=== PATIENT | male | born 1980 | race Caucasian/White ===

== ENCOUNTER 2023-02-14 07:27 | Day surgery (SDC) | payer OTHER ==
[2023-02-10 16:47] VITALS: BMI 26.4
[~2023-02-14 07:27] MED LIST: LACTATED RINGERS 1,000 ML IV SCH
[2023-02-14] MEDS ORDERED: LACTATED RINGERS 1,000 ML IV ONE (07:44)
[2023-02-14 07:53] VITALS: TEMP 98
[2023-02-14] MEDS ORDERED: LIDOCAINE 2% INJ 20 MG/ML (2 ML VIAL) ONE (09:00)
[2023-02-14] MEDS ORDERED: PROPOFOL 10 MG/ML 20 ML VIAL IV ONE (09:00)
--- NOTE | 2023-02-14 09:09 | P.PCN ---
Date of Procedure: 02/14/23 Procedure(s) Performed: BRIEF HISTORY: Patient is a 42-year-old, pleasant, white male scheduled for an upper endoscopy with a possible dilation as a part of evaluation of intermittent dysphagia to solids for the last 10 years duration. For the last 1 year was a submucosal getting worse and happens at least once a week.. PROCEDURE PERFORMED: Esophagogastroduodenoscopy with biopsy and dilation. PREOPERATIVE DIAGNOSIS: Intermittent dysphagia to solids. IV sedation per anesthesia. PROCEDURE: After informed consent was obtained, the patient was brought into the endoscopy unit. IV sedation was administered by Anesthesia under continuous monitoring. Initially the Olympus GIF-140 video endoscope was inserted into the mouth. Esophagus intubated without any difficulty. It was gradually advanced into the distal esophagus with gentle pressure I was able to advance the scope into the stomach and duodenum and carefully examined. The bulb and the second part of the duodenum appeared normal. The scope at this time was withdrawn to the stomach, adequately insufflated with air, and upon careful examination, mucosa of the antrum, body, cardia and the fundus appeared normal. The scope was then withdrawn into the esophagus. The GE junction was located at 42 cm from the incisors. There was a tight distal esophageal stricture identified and this was dilated using 12 mm TTS balloon for 30 seconds and at this time there was a mucosal tear and further dilation was not performed. The mucosal folds in the mid and distal esophagus appeared slightly thickened with longitudinal ridges and follow suspicious for eosinophilic esophagitis and multiple biopsies were done from this area. The rest of the esophagus appeared normal. There were no erosions or ulcerations seen and the patient tolerated the procedure well. IMPRESSION: 1. Distal esophageal stricture status post balloon dilation using 12 mm TTS balloon as described above. 2. Thickened mid and distal esophageal folds suspicious for eosinophilic esophagitis status post multiple biopsies. RECOMMENDATIONS: The findings of this examination were discussed with the patient as his family. He was advised to be on a clear liquid diet since follow with the biopsy results and follow up in office in 3-4 weeks.. T with omeprazole 40 mg daily
[2023-02-14 09:33] VITALS: RESP 16
[2023-02-14 10:04] VITALS: BP 123/57; PULSE 49
== END 2023-02-14 10:09 | disposition home or self-care (01) ==
LOC: ORWHC2ENDO 07:27
PROVIDERS: ATTEND Internal Medicine Gastroenterology
DX: K22.2 Esophageal obstruction (principal); K21.00 Gastro-esophageal reflux disease with esophagitis, without bleeding
CPT/HCPCS: 88305; 43239; 43249; J2704; J2001; C1726